=== PATIENT | female | born 1945 | race Caucasian/White ===

== ENCOUNTER 2018-05-05 14:42 | Observation (INO) ==
[2018-05-05] MEDS ORDERED: MethylPREDNISolone Sod Succinate Inj 125 MG/2 ML Vial IV.PUSH ONE (15:56)
--- NOTE | 2018-05-05 16:01 | ED ---
HPI General Chief Complaint: Respiratory Symptoms Stated Complaint: flu symptoms Time Seen by Provider: 05/05/18 15:35 Source: patient Mode of arrival: ambulatory Limitations: no limitations History of Present Illness HPI Narrative: 72-year-old female with PMH of COPD, JOVAN, HTN, CKD presents the ED for evaluation of 2 week history of intermittent sweats and chills, cough productive of green mucus, dyspnea. The patient states that she saw her primary care provider and was prescribed Clarithromycin 8 days ago. She endorses compliance with antibiotics and states that her symptoms have not improved. She states that she takes 10 mg of prednisone daily and has been using Atrovent inhalers every 4 hours, last dose this morning. She states that she is allergic to albuterol, had an RI after administration many years ago. She states that she uses BiPAP at night. Related Data Home Medications Medication Instructions Recorded Confirmed allopurinol 100 mg PO DAILY 05/05/18 05/05/18 aspirin 81 mg PO DAILY 05/05/18 05/05/18 atenolol 100 mg PO DAILY 05/05/18 05/05/18 calcitriol 0.25 mcg PO DAILY 05/05/18 05/05/18 clarithromycin 500 mg PO BID 05/05/18 05/05/18 furosemide 40 mg PO DAILY 05/05/18 05/05/18 hydralazine 100 mg PO TID 05/05/18 05/05/18 ipratropium bromide 0.025 mg/kg INHALATION Q8H 05/05/18 05/05/18 levothyroxine 75 mcg PO DAILY 05/05/18 05/05/18 pantoprazole 40 mg PO DAILY 05/05/18 05/05/18 prednisone 10 mg PO DAILY 05/05/18 05/05/18 Allergies Allergy/AdvReac Type Severity Reaction Status Date / Time albuterol Allergy Cardiac Verified 05/05/18 17:14 Arrest Review of Systems ROS: all other systems reviewed are negative [facility] Medical History Medical History CHF (congestive heart failure) (Acute) COPD (chronic obstructive pulmonary disease) (Acute) History of gout (Acute) Hx of thyroid disease (Acute) Hypertension (Acute) Stage 3 chronic kidney disease (Acute) Social History Social History (Reviewed 05/05/18 @ 18:08 by MICHELLE Lawrence Substance History: No History of Abuse Second Hand Smoke Exposure: No Smoking Status: Former smoker How Often Do You Have a Drink Containing Alcohol: Never Recent Travel in [facility] within the Last 8 Weeks: No Recent Out of Country Travel within the Last 8 Weeks: No Exam Narrative Exam Narrative: GENERAL: Well-nourished, well-developed, tachypneic, ill- appearing white female in no acute distress. SKIN: Focused skin assessment warm/dry. HEAD: Atraumatic. Normocephalic. EYES: Pupils equal and round. No scleral icterus. No injection or drainage. ENT: No nasal bleeding or discharge. Mucous membranes pink and moist. NECK: Trachea midline. No JVD. CARDIOVASCULAR: Regular rate and rhythm. No murmur appreciated. RESPIRATORY: + accessory muscle use. Clear to auscultation. Breath sounds equal bilaterally. GASTROINTESTINAL: Abdomen soft, non-tender, nondistended. Hepatic and splenic margins not palpable. MUSCULOSKELETAL: No obvious deformities. No clubbing. No cyanosis. No edema. NEUROLOGICAL: Awake and alert. No obvious cranial nerve deficits. Motor grossly within normal limits. Normal speech. PSYCHIATRIC: Appropriate mood and affect; insight and judgment normal. Course Initial Documented Vital Signs Temperature 97.7 F 05/05/18 14:57 Pulse Rate 60 05/05/18 14:57 Respiratory Rate 32 H 05/05/18 14:57 Blood Pressure 171/74 H 05/05/18 14:57 Pulse Oximetry 96 05/05/18 14:57 Last Documented Vital Signs Temperature 97.6 F 05/05/18 20:00 Pulse Rate 83 05/05/18 20:00 Respiratory Rate 20 05/05/18 20:00 Blood Pressure 117/74 05/05/18 20:00 Pulse Oximetry 100 05/05/18 20:00 Medical Decision Making SARAH Attestation SARAH supervised visit: Yes Attestation: I, Dr. Trujillo, have reviewed the advance practice practitioner's documentation and am in agreement, met with the patient face to face, made the diagnosis, and the medical decision making was done by me. *My assessment and Findings: This patient is being treated for pneumonia but not doing well. She is failing outpatient treatment. Workup here was conducted again will be readmitted. She is tachypneic and dyspneic. Will be admitted for IV antibiotics and further therapy. 72-year-old female with PMH of COPD, CHF presents the ED for evaluation of 2 week history of cough productive of yellow phlegm, fevers and shortness of breath. Patient is tachypneic and dyspneic on presentation. Physical exam reveals an obese white female in no acute distress. Lung sounds are clear. Trace edema in the lower extremities. Patient is allergic to albuterol. She was administered IV steroids. Workup reveals mild leukocytosis and interstitial changes in the lungs. There is a nodule noted as well. Patient was administered IV azithromycin and doxycycline. Plan to admit for further evaluation. Patient is agreeable. I spoke with Dr. Roldan who agrees to accept the patient to the medicine service. Please see medicine notes for disposition. MDM Narrative Medical Screen Exam Complete: Yes Emergency Medical Condition: Yes Differential Diagnosis Differential Diagnosis: COPD exacerbation versus CHF exacerbation versus pneumonia versus failed outpatient treatment versus sepsis versus metabolic derangement versus acute on chronic kidney injury versus other Lab Data Result diagrams: 05/05/18 17:00 05/05/18 17:00 Lab Results 05/05/18 05/05/18 05/05/18 Range/Units 17:00 17:00 17:00 WBC 12.0 H (4.0-11.0) th/mm3 RBC 3.79 L (4.00-5.30) mil/mm3 Hgb 11.5 L (11.6-15.3) gm/dL Hct 34.4 L (35.0-46.0) % MCV 90.7 (80.0-100.0) fL MCH 30.4 (27.0-34.0) pg MCHC 33.6 (32.0-36.0) % RDW 14.0 (11.6-17.2) % Plt Count 211 (150-450) th/mm3 MPV 8.6 (7.0-11.0) fL Neut % (Auto) 85.5 H (16.0-70.0) % Lymph % (Auto) 9.0 (9.0-44.0) % [place]lette % (Auto) 3.4 (0.0-8.0) % Eos % (Auto) 2.0 (0.0-4.0) % Baso % (Auto) 0.1 (0.0-2.0) % Neut # (Auto) 10.2 H (1.8-7.7) th/mm3 Lymph # (Auto) 1.1 (1.0-4.8) th/mm3 Sublette # (Auto) 0.4 (0.0-0.9) th/mm3 Eos # (Auto) 0.2 (0.0-0.4) th/mm3 Baso # (Auto) 0.0 (0.0-0.2) th/mm3 WBC Differential . Differential Comment Auto diff final Sodium 146 H (136-145) meq/L Potassium 3.8 (3.5-5.1) meq/L Chloride 108 H (98-107) meq/L Carbon Dioxide 28.3 (21.0-32.0) meq/L Anion Gap 10 (5-15) meq/L BUN 29 H (7-18) mg/dL Creatinine 2.07 H (0.50-1.00) mg/dL Estimated GFR 24 L (>89) mL/min Random Glucose 173 H (74-106) mg/dL Lactic Acid 1.0 (0.4-2.0) mmol/L Calcium 8.9 (8.5-10.1) mg/dL Total Bilirubin 0.3 (0.2-1.0) mg/dL AST 16 (15-37) U/L ALT 24 (10-53) U/L Alkaline Phosphatase 73 (45-117) U/L B-Natriuretic Peptide (0-100) pg/mL Total Protein 6.8 (6.4-8.2) g/dL Albumin 3.4 (3.4-5.0) g/dL 05/05/18 Range/Units 17:00 WBC (4.0-11.0) th/mm3 RBC (4.00-5.30) mil/mm3 Hgb (11.6-15.3) gm/dL Hct (35.0-46.0) % MCV (80.0-100.0) fL MCH (27.0-34.0) pg MCHC (32.0-36.0) % RDW (11.6-17.2) % Plt Count (150-450) th/mm3 MPV (7.0-11.0) fL Neut % (Auto) (16.0-70.0) % Lymph % (Auto) (9.0-44.0) % [place] % (Auto) (0.0-8.0) % Eos % (Auto) (0.0-4.0) % Baso % (Auto) (0.0-2.0) % Neut # (Auto) (1.8-7.7) th/mm3 Lymph # (Auto) (1.0-4.8) th/mm3 [place]lette # (Auto) (0.0-0.9) th/mm3 Eos # (Auto) (0.0-0.4) th/mm3 Baso # (Auto) (0.0-0.2) th/mm3 WBC Differential Differential Comment Sodium (136-145) meq/L Potassium (3.5-5.1) meq/L Chloride (98-107) meq/L Carbon Dioxide (21.0-32.0) meq/L Anion Gap (5-15) meq/L BUN (7-18) mg/dL Creatinine (0.50-1.00) mg/dL Estimated GFR (>89) mL/min Random Glucose (74-106) mg/dL Lactic Acid (0.4-2.0) mmol/L Calcium (8.5-10.1) mg/dL Total Bilirubin (0.2-1.0) mg/dL AST (15-37) U/L ALT (10-53) U/L Alkaline Phosphatase (45-117) U/L B-Natriuretic Peptide 195 H (0-100) pg/mL Total Protein (6.4-8.2) g/dL Albumin (3.4-5.0) g/dL Imaging Data Radiologist's impression: Chest CT 05/05/18 00:00 CONCLUSION: 1. Bilateral irregularly shaped groundglass nodular densities including left upper lung nodular density likely correlating with the chest x-ray finding. The patient had a prior chest CT in 2013 but the images are not available this time for direct comparison. Comparison to these images would be recommended if possible. Groundglass nodular densities are mentioned on the report of prior study. Precise comparison cannot be made without direct review of the images. 2. 1.3 cm pleural-based nodular in the left lower lung laterally. 3. The findings are nonspecific and both inflammatory and neoplastic etiologies are in the differential diagnosis. Chest X-Ray 05/05/18 15:56 CONCLUSION: 1. Cardiomegaly. 2. 1 cm nodule within the left upper lobe. Consider outpatient CT scan of thorax to further assess. 3. Chronic interstitial changes. Discharge Plan Discharge Disposition Patient Disposition: 30 Still Patient Discharge Condition Condition: Stable Physicians Team ED Provider: Kt Trujillo ED Midlevel Provider: Ivelisse Hercules Primary Care Provider: UNKNOWN, Attending Provider: Dinora Shell Other Providers: Brett West Discharge Interventions Interventions: ED Discharge Assessment Last Done: 05/05/18 20:42 Vital Signs Last Done: 05/05/18 14:57 Status ED Status: Left Department Discharge Information Discharge Date/Time: 05/05/18 20:57
--- NOTE | 2018-05-05 16:23 | XR ---
EXAM DATE: 05/05/2018 4:16 PM EDT AGE/SEX: 72 years / Female INDICATIONS: . Fever, and cough. CLINICAL DATA: This is the patient's initial encounter. Patient reports that signs and symptoms have been present for 2 days and indicates a pain score of 3/10. MEDICAL/SURGICAL HISTORY: Chronic obstructive pulmonary disease. None. COMPARISON: No prior exams available for comparison. FINDINGS: PA and lateral views of the chest demonstrate mild cardiomegaly without pulmonary vascular engorgemen t. A vague 1 cm nodular density projects over the left upper lobe. Chronic interstitial changes noted throughout the lungs. No infiltrates or effusions. Bony structures are unremarkable. CONCLUSION: 1. Cardiomegaly. 2. 1 cm nodule within the left upper lobe. Consider outpatient CT scan of thorax to further assess. 3. Chronic interstitial changes. Electronically signed by: Jonathan Gandhi MD 05/05/2018 4:22 PM EDT
[2018-05-05 17:30] LABS: Baso % (Auto) 0.1 % (0.0-2.0); Eos # (Auto) 0.2 th/mm3 (0.0-0.4); Hematocrit 34.4 % (35.0-46.0); Hemoglobin 11.5 gm/dL (11.6-15.3); Lymph # (Auto) 1.1 th/mm3 (1.0-4.8); Mean Corpuscular HGB Conc 33.6 % (32.0-36.0); Mean Corpuscular Hemoglobin 30.4 pg (27.0-34.0); Mean Corpuscular Volume 90.7 fL (80.0-100.0); Mean Platelet Volume 8.6 fL (7.0-11.0); Mono # (Auto) 0.4 th/mm3 (0.0-0.9); Mono % (Auto) 3.4 % (0.0-8.0); Neut # (Auto) 10.2 th/mm3 (1.8-7.7); Neut % (Auto) 85.5 % (16.0-70.0); Platelet Count 211 th/mm3 (150-450); Red Blood Count 3.79 mil/mm3 (4.00-5.30)
[2018-05-05 17:48] LABS: Alanine Aminotransferase 24 U/L (10-53); Albumin 3.4 g/dL (3.4-5.0); Anion Gap 10 meq/L (5-15); Aspartate Aminotransferase 16 U/L (15-37); Blood Urea Nitrogen 29 mg/dL (7-18); Calcium 8.9 mg/dL (8.5-10.1); Carbon Dioxide 28.3 meq/L (21.0-32.0); Chloride 108 meq/L (98-107); Glomerular Filtration Rate 24 mL/min (>89); Glucose,Random 173 mg/dL (74-106); Potassium 3.8 meq/L (3.5-5.1); Sodium 146 meq/L (136-145)
[2018-05-05 17:50] LABS: Alkaline Phosphatase 73 U/L (45-117); Total Protein 6.8 g/dL (6.4-8.2)
[2018-05-05] MEDS ORDERED: Sod Chloride 0.9% Inj 1,000 ML IV.SIG ONE (18:02)
[2018-05-05] MEDS ORDERED: Bisacodyl 10 MG Supp RECTAL PRN (18:55)
[2018-05-05] MEDS ORDERED: Acetaminophen 325 MG Tablet PO PRN (18:55)
--- NOTE | 2018-05-05 18:56 | P.HPIM ---
History of Present Illness Primary Care Physician: UNKNOWN History of Present Illness: This is a 72-year-old female with a PMH of HTN, COPD, Chronic Steroid Therapy and CKD Stage III-IV who presented to the ER w/ c/o SOB x10 days. Seen by PCP 10 days ago and started on Clarithromycin 500mg BID w/ minimal improvement, no outpatient CXR done. Notes she has been on Prednisone 10mg qd for approx 7yrs, "whenever they take me off I get a pneumonia". Follows w/ [facility] in [place]. Notes productive cough w/ green-colored sputum and persistent SOB/ wheezing. Reports significant ALLERGY to Albuterol, states "my heart beat out of my chest and I was in the ICU for 3 days", uses Ipratropium at home w/ no adverse effects. Denies fever, chills or chest pain. On arrival, BP 171/74, HR 60, O2 sat 96% on RA, Afebrile. WBC 12. Creatinine 2.07, no previous labs for comparison however patient reports this is likely baseline. CXR with one similar nodule left upper lobe recommendation for CT scan, chronic interstitial changes. S/p Ipratropium and Solu-Medrol in ER w/ some improvement, however persistent SOB/wheezing. - Diagnosis (1) COPD (chronic obstructive pulmonary disease) (2) PNA (pneumonia) (3) Lung nodule (4) CKD (chronic kidney disease) stage 4, GFR 15-29 ml/min (5) HTN (hypertension) Review of Systems PAST FAMILY HISTORY: Reviewed. No h/o DM or CAD All other systems reviewed negative except as stated in HPI [facility] - History History Provided By: Patient, Family Member - Medical History Medical History: Medical History (Last Reviewed 05/05/18 @ 18:08 by JOHN Lawrence) CHF (congestive heart failure) COPD (chronic obstructive pulmonary disease) History of gout Hx of thyroid disease Hypertension Stage 3 chronic kidney disease - Tobacco History Smoking Status: Former smoker - Alcohol History How Often Do You Have a Drink Containing Alcohol: Never - Substance Use History Substance History: No History of Abuse - Travel History Recent Travel in the [place] Within the Last 8 Weeks: No Recent Travel Out of the Country Within the Last 8 Weeks: No - Immunization History Tetanus Immunization: <5 Years Hx Influenza Vaccine This Season: No Medications and Allergies Active Medications: Active Medications Doxycycline Hyclate 100 mg/ (Sodium Chloride) 100 mls @ 100 mls/hr IV.SIG ONCE ONE Stop: 05/05/18 19:03 Allergies Allergy/AdvReac Type Severity Reaction Status Date / Time albuterol Allergy Cardiac Verified 05/05/18 17:14 Arrest Home Medications Medication Instructions Recorded Confirmed Type allopurinol 100 mg PO DAILY 05/05/18 05/05/18 History aspirin 81 mg PO DAILY 05/05/18 05/05/18 History atenolol 100 mg PO DAILY 05/05/18 05/05/18 History calcitriol 0.25 mcg PO DAILY 05/05/18 05/05/18 History clarithromycin 500 mg PO BID 05/05/18 05/05/18 History furosemide 40 mg PO DAILY 05/05/18 05/05/18 History hydralazine 100 mg PO TID 05/05/18 05/05/18 History ipratropium bromide 0.025 mg/kg INHALATION Q8H 05/05/18 05/05/18 History levothyroxine 75 mcg PO DAILY 05/05/18 05/05/18 History pantoprazole 40 mg PO DAILY 05/05/18 05/05/18 History prednisone 10 mg PO DAILY 05/05/18 05/05/18 History Exam Vital signs: Vital Signs 05/05/18 14:57 05/05/18 16:35 05/05/18 18:53 Temperature 97.7 F Pulse Rate 60 66 Respiratory Rate 32 H 20 Blood Pressure 171/74 H Pulse Oximetry 96 100 05/05/18 18:54 Temperature Pulse Rate Respiratory Rate Blood Pressure Pulse Oximetry 99 Intake & Output 05/04/18 05/05/18 05/05/18 18:59 06:59 18:59 Weight 103 kg Narrative: PE: GENERAL: Very pleasant elderly white female in no acute distress. Daughter at bedside. SKIN: Focused skin assessment warm and dry. HEENT: PERRLA, EOMI. No scleral icterus or conjunctival pallor. No lid lag or facial droop. CARDIOVASCULAR: Regular rate and rhythm. No obvious murmurs to auscultation. No chest tenderness to palpation. RESPIRATORY: Coarse breath sounds bilaterally, occasional wheezing. No crackles. GASTROINTESTINAL: Abdomen soft, non-tender, nondistended. BS normal. MUSCULOSKELETAL: Extremities without clubbing, cyanosis, or edema. No obvious deformities. NEUROLOGICAL: Awake, alert and oriented x4. No focal neurologic deficits. Moving both upper and lower extremities spontaneously. PSYCHIATRIC: Appropriate mood and affect. Insight and judgment normal. Results - Labs CBC & Chem 7: 05/05/18 17:00 05/05/18 17:00 Labs: Short CBC 05/05/18 Range/Units 17:00 WBC 12.0 H (4.0-11.0) th/mm3 Hgb 11.5 L (11.6-15.3) gm/dL Hct 34.4 L (35.0-46.0) % Plt Count 211 (150-450) th/mm3 BMP 05/05/18 17:00 Sodium 146 H Potassium 3.8 Chloride 108 H Carbon Dioxide 28.3 BUN 29 H Creatinine 2.07 H Calcium 8.9 Liver Function 05/05/18 Range/Units 17:00 Total Bilirubin 0.3 (0.2-1.0) mg/dL AST 16 (15-37) U/L ALT 24 (10-53) U/L Alkaline Phosphatase 73 (45-117) U/L Albumin 3.4 (3.4-5.0) g/dL - Imaging Impressions Chest X-Ray 05/05/18 15:56 CONCLUSION: 1. Cardiomegaly. 2. 1 cm nodule within the left upper lobe. Consider outpatient CT scan of thorax to further assess. 3. Chronic interstitial changes. Caprini VTE Risk Assessment Caprini VTE Risk Assessment: No/Low Risk (score <= 1) Caprini Risk Assessment Model: Point Value = 1 Point Value = 2 Point Value = 3 Point Value = 5 Age 41-60 Minor surgery BMI > 25 kg/m2 Swollen legs Varicose veins or History of unexplained or recurrent spontaneous Oral contraceptives or hormone replacement Sepsis (< 1 month) Serious lung disease, including pneumonia (< 1 month) Abnormal pulmonary function Acute myocardial infarction Congestive heart failure (< 1 month) History of inflammatory bowel disease Medical patient at bed rest Age 61-74 Arthroscopic surgery Major open surgery (> 45 min) Laparoscopic surgery (> 45 min) Malignancy Confined to bed (> 72 hours) Immobilizing plaster cast Central venous access Age >= 75 History of VTE Family history of VTE Factor V Leiden Prothrombin [id number] Lupus anticoagulant Anticardiolipin antibodies Elevated serum homocysteine Heparin-induced thrombocytopenia Other congenital or acquired thrombophilia Stroke (< 1 month) Elective arthroplasty Hip, pelvis, or leg fracture Acute spinal cord injury (< 1 month) Prophylaxis Regimen: Total Risk Factor Score Risk Level Prophylaxis Regimen 0-1 Low Early ambulation 2 Moderate Order ONE of the following: *Sequential Compression Device (SCD) *Heparin 5000 units SQ BID 3-4 Higher Order ONE of the following medications: *Heparin 5000 units SQ TID *Enoxaparin/Lovenox 40 mg SQ daily (WT < 150 kg, CrCl > 30 mL/min) *Enoxaparin/Lovenox 30 mg SQ daily (WT < 150 kg, CrCl > 10-29 mL/min) *Enoxaparin/Lovenox 30 mg SQ BID (WT < 150 kg, CrCl > 30 mL/min) AND/OR *Sequential Compression Device (SCD) 5 or more Highest Order ONE of the following medications: *Heparin 5000 units SQ TID (Preferred with Epidurals) *Enoxaparin/Lovenox 40 mg SQ daily (WT < 150 kg, CrCl > 30 mL/min) *Enoxaparin/Lovenox 30 mg SQ daily (WT < 150 kg, CrCl > 10-29 mL/min) *Enoxaparin/Lovenox 30 mg SQ BID (WT < 150 kg, CrCl > 30 mL/min) AND *Sequential Compression Device (SCD) Assessment and Plan - Assessment (1) COPD (chronic obstructive pulmonary disease) Code(s): J44.9 - Chronic obstructive pulmonary disease, unspecified Status: Acute (2) PNA (pneumonia) Code(s): J18.9 - Pneumonia, unspecified organism Status: Acute (3) Lung nodule Code(s): R91.1 - Solitary pulmonary nodule Status: Acute (4) CKD (chronic kidney disease) stage 4, GFR 15-29 ml/min Code(s): N18.4 - Chronic kidney disease, stage 4 (severe) Status: Acute (5) HTN (hypertension) Code(s): I10 - Essential (primary) hypertension Status: Acute - Plan A/P: 1. COPD: Chronic Respiratory Failure w/ Acute Exacerbation. Moderate. On chronic steroid therapy w/ Prednisone 10mg qd for the last 7yrs. Solu-Medrol 40mg q6, Ipratropium Neb (ALLERGY to Albuterol). Monitor O2. Follows w/ [facility] in [place], outpatient follow up after d/c. 2. PNA: productive cough w/ green-colored sputum, on Clarithromycin x10 days by PCP, persistent productive cough, CXR w/ lung nodule, chronic interstitial changes, no obvious infiltrate. Will start Levaquin IV, Mucinex, Check Sputum Cultures. 3. Lung Nodule: CXR w/ 1cm JOSE nodule, pt denies previous history of nodule, will check CT Chest for further evaluation, unable to give contrast due to renal function. 4. CKD: Stage III-IV, follows w/ [facility] in [place], creatinine 2.07, no previous labs for comparison, pt reports likely baseline. Will check U/a, repeat labs in am, monitor I/O, s/p IVF in ER. 5. DVT Prophylaxis: SCD/Teds 6. Social work for d/c planning as needed 7. Case discussed w/ ER physician at length, labs/records/imaging reviewed by me
[2018-05-05] MEDS ORDERED: Sod Chloride 0.9% Inj 1,000 ML IV.CONT SCH (19:00)
--- NOTE | 2018-05-05 19:49 | CT ---
EXAM DATE: 05/05/2018 7:35 PM EDT AGE/SEX: 72 years / Female INDICATIONS: Shortness of breath, cough, and fever, diagnosed with pneumonia ten days ago. CLINICAL DATA: This is the patient's initial encounter. Patient reports that signs and symptoms have been present for 2 weeks and indicates a pain score of 3/10. MEDICAL/SURGICAL HISTORY: Hypertension. Congestive heart failure. Chronic obstructive pulmonary d isease. Thyroid disease, kidney disease. None. RADIATION DOSE: 19.26 CTDI (mGy) COMPARISON: No prior exams available for comparison. TECHNIQUE: Multiple contiguous axial images were obtained through the chest without contrast. Image s were obtained in suspended respiration using multiple row detector helical technique. Using automa josiah exposure control and adjustment of the mA and/or kV according to patient size, radiation dose was kept as low as reasonably achievable to obtain optimal diagnostic quality images. DICOM format imag e data is available electronically for review and comparison. FINDINGS: Lungs: Multiple groundglass nodular densities are identified bilaterally including 1.4 cm density in the right upper lobe on image #27 and 1.3 cm nodular density in the left upper lobe on image #26 1.2 cm groundglass nodular density in the lateral right mid lung on image #30. 1.2 cm ground glass nodul ar density in the right lower lung on image #42. Pleural-based pulmonary nodular density in the left lower lung laterally measures 1.3 cm on image #43. Mediastinum: Coronary artery calcification. No enlarged lymph nodes. Pleurae: No evidence of focal thickening or pleural effusion. Axillae: Unremarkable. Bony Structures: Unremarkable. Miscellaneous: Cholecystectomy clips. Upper abdomen within normal limits. Small hiatal hernia. CONCLUSION: 1. Bilateral irregularly shaped groundglass nodular densities including left upper lung nodular dens ity likely correlating with the chest x-ray finding. The patient had a prior chest CT in 2013 but the images are not available this time for direct comparison. Comparison to these images would be recomm ended if possible. Groundglass nodular densities are mentioned on the report of prior study. Precise comparison cannot be made without direct review of the images. 2. 1.3 cm pleural-based nodular in the left lower lung laterally. 3. The findings are nonspecific and both inflammatory and neoplastic etiologies are in the different ial diagnosis. Electronically signed by: Sujit Gallo MD 05/05/2018 7:47 PM EDT
[2018-05-05] MEDS: guaiFENesin 600 MG ER Tablet PO SCH (21:40)
[2018-05-05] MEDS: Senna/Docusate Sodium 8.6/50 MG Tablet PO SCH (21:40)
[2018-05-05] MEDS: MethylPREDNISolone Sod Succinate Inj 40 MG/ML Vial IV.PUSH SCH (22:00)
[2018-05-05 23:41] LABS: Bilirubin,Urine Negative (Negative); Clarity,Urine Clear (Clear); Color,Urine Yellow (Yellw/Straw); Glucose,Urine (UA) 150 mg/dL (Negative); Hyaline Casts,Urine 3 /lpf (0-3); Leukocyte Esterase,Urine Negative (Negative); Mucus,Urine Few /lpf (Occasional); Nitrite,Urine Negative (Negative); Specific Gravity,Urine 1.011 (1.002-1.035); Squamous Epithelial Cell,Urine <1 /hpf (0-5)
[2018-05-06] MEDS: MethylPREDNISolone Sod Succinate Inj 40 MG/ML Vial IV.PUSH SCH ×4 (04:05→21:00)
[2018-05-06] MEDS: Levothyroxine 75 MCG Tablet PO SCH (06:10)
[2018-05-06 09:28] LABS: Baso % (Auto) 0.3 % (0.0-2.0); Hemoglobin 11.2 gm/dL (11.6-15.3); Lymph # (Auto) 0.7 th/mm3 (1.0-4.8); Lymph % (Auto) 7.3 % (9.0-44.0); Mean Corpuscular HGB Conc 34.9 % (32.0-36.0); Mean Corpuscular Hemoglobin 31.4 pg (27.0-34.0); Mean Corpuscular Volume 90.1 fL (80.0-100.0); Mean Platelet Volume 8.7 fL (7.0-11.0); Mono % (Auto) 0.5 % (0.0-8.0); Neut # (Auto) 8.6 th/mm3 (1.8-7.7); Neut % (Auto) 91.9 % (16.0-70.0); Platelet Count 194 th/mm3 (150-450); Red Blood Count 3.56 mil/mm3 (4.00-5.30); Red Cell Distribution Width 13.8 % (11.6-17.2); White Blood Count 9.3 th/mm3 (4.0-11.0)
[2018-05-06 09:54] LABS: Anion Gap 12 meq/L (5-15); Aspartate Aminotransferase 16 U/L (15-37); Blood Urea Nitrogen 26 mg/dL (7-18); Calcium 8.7 mg/dL (8.5-10.1); Carbon Dioxide 22.2 meq/L (21.0-32.0); Chloride 107 meq/L (98-107); Glomerular Filtration Rate 26 mL/min (>89); Glucose,Random 246 mg/dL (74-106); Potassium 3.8 meq/L (3.5-5.1); Sodium 141 meq/L (136-145)
[2018-05-06 09:56] LABS: Alanine Aminotransferase 20 U/L (10-53)
[2018-05-06 09:58] LABS: Alkaline Phosphatase 64 U/L (45-117); Total Protein 6.2 g/dL (6.4-8.2)
[2018-05-06] MEDS: Senna/Docusate Sodium 8.6/50 MG Tablet PO SCH ×2 (10:38→21:00)
[2018-05-06] MEDS: guaiFENesin 600 MG ER Tablet PO SCH ×2 (10:39→20:59)
[2018-05-06] MEDS: Atenolol 100 MG Tablet PO SCH (10:40)
--- NOTE | 2018-05-06 12:31 | P.PN ---
Subjective Interval history: Follow-up COPD exacerbation May 06, 2018-patient seen and examined, reports some improvement of shortness of breath. Denies any chest pain. Physical Exam Vital signs: Vital Signs 05/05/18 14:57 05/05/18 16:35 05/05/18 18:15 Temperature 97.7 F Pulse Rate 60 Respiratory Rate 32 H 26 H Blood Pressure 171/74 H 185/77 H Pulse Oximetry 96 100 05/05/18 18:53 05/05/18 18:54 05/05/18 20:00 Temperature 97.6 F Pulse Rate 66 83 Respiratory Rate 20 20 Blood Pressure 117/74 Pulse Oximetry 99 100 05/05/18 21:44 05/05/18 23:49 05/06/18 04:00 Temperature 97.8 F 97.8 F Pulse Rate 74 76 76 Respiratory Rate 18 21 21 Blood Pressure 125/60 220/96 H Pulse Oximetry 93 L 05/06/18 07:08 05/06/18 07:28 05/06/18 11:26 Temperature 98.8 F 98.6 F Pulse Rate 69 78 86 Respiratory Rate 18 18 18 Blood Pressure 185/79 H 148/67 H Pulse Oximetry 95 96 Intake & Output 05/05/18 05/06/18 05/06/18 18:59 06:59 18:59 Intake Total 1260 / 1260 Balance 1260 / 1260 Weight 103 kg 102.965 kg Intake: IV 1200 / 1200 Doxy 100 Inj 100 MG In NS Inj 100 / 100 100 ML @ 100 mls/hr IV.SIG ONCE ONE Rx#:[id number] NS Inj 1,000 ML @ Wide Open IV. 1000 / 1000 SIG BOLUS ONE Rx#:[id number] Rocephin Inj 1,000 MG In NS Inj 100 / 100 100 ML @ 200 mls/hr IV.SIG ONCE ONE Rx#:[id number] Oral 60 / 60 Other: # Voids 2 Weight On Admission 102.965 kg Narrative: GENERAL: NAD SKIN: Warm and dry. HEAD: Normocephalic. EYES: No scleral icterus. No injection or drainage. NECK: Supple, trachea midline. No JVD or lymphadenopathy. CARDIOVASCULAR: Regular rate and rhythm without murmurs, gallops, or rubs. RESPIRATORY: Breath sounds decreased bilaterally. No accessory muscle use. GASTROINTESTINAL: Abdomen soft, non-tender, nondistended. MUSCULOSKELETAL: No cyanosis, or edema. BACK: Nontender without obvious deformity. No CVA tenderness. Results - Labs CBC & Chem 7: 05/06/18 09:00 05/06/18 09:00 Laboratory Results - last 24 hr 05/05/18 05/05/18 05/05/18 17:00 17:00 17:00 WBC 12.0 H RBC 3.79 L Hgb 11.5 L Hct 34.4 L MCV 90.7 MCH 30.4 MCHC 33.6 RDW 14.0 Plt Count 211 MPV 8.6 Neut % (Auto) 85.5 H Lymph % (Auto) 9.0 [place] % (Auto) 3.4 Eos % (Auto) 2.0 Baso % (Auto) 0.1 Neut # (Auto) 10.2 H Lymph # (Auto) 1.1 [place] # (Auto) 0.4 Eos # (Auto) 0.2 Baso # (Auto) 0.0 WBC Differential . Differential Comment Auto diff final Sodium 146 H Potassium 3.8 Chloride 108 H Carbon Dioxide 28.3 Anion Gap 10 BUN 29 H Creatinine 2.07 H Estimated GFR 24 L Random Glucose 173 H Lactic Acid 1.0 Calcium 8.9 Total Bilirubin 0.3 AST 16 ALT 24 Alkaline Phosphatase 73 B-Natriuretic Peptide Total Protein 6.8 Albumin 3.4 Urine Color Urine Clarity Urine pH Ur Specific [place] Urine Protein Urine Glucose (UA) Urine Ketones Urine Occult Blood Urine Nitrate Urine Bilirubin Urine Urobilinogen Ur Leukocyte Esterase Urine RBC Urine WBC Ur Squamous Epith Cells Hyaline Casts Urine Mucus Micro UA Comment Ur Microscopic Review Urine Culture Comments 05/05/18 05/05/18 05/06/18 17:00 23:05 09:00 WBC 9.3 RBC 3.56 L Hgb 11.2 L Hct 32.0 L MCV 90.1 MCH 31.4 MCHC 34.9 RDW 13.8 Plt Count 194 MPV 8.7 Neut % (Auto) 91.9 H Lymph % (Auto) 7.3 L [place] % (Auto) 0.5 Eos % (Auto) 0.0 Baso % (Auto) 0.3 Neut # (Auto) 8.6 H Lymph # (Auto) 0.7 L [place] # (Auto) 0.0 Eos # (Auto) 0.0 Baso # (Auto) 0.0 WBC Differential . Differential Comment Auto diff final Sodium Potassium Chloride Carbon Dioxide Anion Gap BUN Creatinine Estimated GFR Random Glucose Lactic Acid Calcium Total Bilirubin AST ALT Alkaline Phosphatase B-Natriuretic Peptide 195 H Total Protein Albumin Urine Color Yellow Urine Clarity Clear Urine pH 5.0 Ur Specific [place] 1.011 Urine Protein 100 H Urine Glucose (UA) 150 H Urine Ketones Negative Urine Occult Blood Negative Urine Nitrate Negative Urine Bilirubin Negative Urine Urobilinogen Less than 2 Ur Leukocyte Esterase Negative Urine RBC 1 Urine WBC 1 Ur Squamous Epith Cells <1 Hyaline Casts 3 Urine Mucus Few H Micro UA Comment Culture not ind Ur Microscopic Review Not Reportable Urine Culture Comments Culture not ind 05/06/18 09:00 WBC RBC Hgb Hct MCV MCH MCHC RDW Plt Count MPV Neut % (Auto) Lymph % (Auto) [place] % (Auto) Eos % (Auto) Baso % (Auto) Neut # (Auto) Lymph # (Auto) [place] # (Auto) Eos # (Auto) Baso # (Auto) WBC Differential Differential Comment Sodium 141 Potassium 3.8 Chloride 107 Carbon Dioxide 22.2 Anion Gap 12 BUN 26 H Creatinine 1.92 H Estimated GFR 26 L Random Glucose 246 H Lactic Acid Calcium 8.7 Total Bilirubin 0.3 AST 16 ALT 20 Alkaline Phosphatase 64 B-Natriuretic Peptide Total Protein 6.2 L D Albumin 3.0 L Urine Color Urine Clarity Urine pH Ur Specific [place] Urine Protein Urine Glucose (UA) Urine Ketones Urine Occult Blood Urine Nitrate Urine Bilirubin Urine Urobilinogen Ur Leukocyte Esterase Urine RBC Urine WBC Ur Squamous Epith Cells Hyaline Casts Urine Mucus Micro UA Comment Ur Microscopic Review Urine Culture Comments Microbiology 05/05/18 17:00 Blood - Line Aerobic Blood Culture - Preliminary No growth in 1 day 05/05/18 17:00 Blood - Line Anaerobic Blood Culture - Preliminary No growth in 1 day 05/05/18 17:00 Blood - Line Aerobic Blood Culture - Preliminary No growth in 1 day 05/05/18 17:00 Blood - Line Anaerobic Blood Culture - Preliminary No growth in 1 day 05/05/18 17:40 Nasal Wash Influenza Types A,B Antigen - Final Negative for FLU A and B antigen Infection due to influenza A or B cannot be ruled out since the antigen present in the sample may be below the detection limit of the test. - Imaging Impressions Chest CT 05/05/18 00:00 CONCLUSION: 1. Bilateral irregularly shaped groundglass nodular densities including left upper lung nodular density likely correlating with the chest x-ray finding. The patient had a prior chest CT in 2013 but the images are not available this time for direct comparison. Comparison to these images would be recommended if possible. Groundglass nodular densities are mentioned on the report of prior study. Precise comparison cannot be made without direct review of the images. 2. 1.3 cm pleural-based nodular in the left lower lung laterally. 3. The findings are nonspecific and both inflammatory and neoplastic etiologies are in the differential diagnosis. Chest X-Ray 05/05/18 15:56 CONCLUSION: 1. Cardiomegaly. 2. 1 cm nodule within the left upper lobe. Consider outpatient CT scan of thorax to further assess. 3. Chronic interstitial changes. Assessment and Plan - Assessment (1) COPD (chronic obstructive pulmonary disease) Code(s): J44.9 - Chronic obstructive pulmonary disease, unspecified Status: Acute (2) PNA (pneumonia) Code(s): J18.9 - Pneumonia, unspecified organism Status: Acute (3) Lung nodule Code(s): R91.1 - Solitary pulmonary nodule Status: Acute (4) CKD (chronic kidney disease) stage 4, GFR 15-29 ml/min Code(s): N18.4 - Chronic kidney disease, stage 4 (severe) Status: Acute (5) HTN (hypertension) Code(s): I10 - Essential (primary) hypertension Status: Acute - Plan 72-year-old female with 1. COPD: Chronic Respiratory Failure w/ Acute Exacerbation. Moderate. Currently on Solu-Medrol 40mg q6, Ipratropium Neb (ALLERGY to Albuterol), Levaquin. Monitor O2. Follows w/ Machine Steak Tenderizer in [place], outpatient follow up after d/c. 2. Community acquired PNA: productive cough w/ green-colored sputum, on Clarithromycin x10 days by PCP, persistent productive cough Continue with Levaquin IV, Mucinex, Check Sputum Cultures. 3. Lung Nodule: CXR w/ 1cm JOSE nodule, pt denies previous history of nodule. CT chest noted and review 4. Acute on CKD: Stage III-IV, follows w/ Admin Prog Coord in [facility], creatinine 2.07, no previous labs for comparison, pt reports likely baseline Renal indices improving 5. Hypertension Continue with atenolol 6. DVT Prophylaxis: SCD/Teds
[2018-05-07] MEDS: MethylPREDNISolone Sod Succinate Inj 40 MG/ML Vial IV.PUSH SCH (04:17)
[2018-05-07 04:37] VITALS: O2SAT 97
[2018-05-07] MEDS: Levothyroxine 75 MCG Tablet PO SCH (06:16)
[2018-05-07 07:54] VITALS: PULSE 68; RESP 18; TEMP 98.8
[2018-05-07] MEDS: guaiFENesin 600 MG ER Tablet PO SCH (08:32)
[2018-05-07] MEDS: Atenolol 100 MG Tablet PO SCH (08:32)
[2018-05-07] MEDS: Senna/Docusate Sodium 8.6/50 MG Tablet PO SCH (08:32)
[2018-05-07] MEDS ORDERED: predniSONE 20 MG Tablet PO SCH (09:00)
[2018-05-07] MEDS ORDERED: Allopurinol 100 MG Tablet PO SCH (09:00)
[2018-05-07] MEDS ORDERED: Furosemide 40 MG Tablet PO SCH (09:00)
--- NOTE | 2018-05-07 09:52 | P.PN ---
Subjective Interval history: Follow-up COPD exacerbation May 06, 2018-patient seen and examined, reports some improvement of shortness of breath. Denies any chest pain. May 07, 2018-patient seen and examined, denies any chest pain and reports significant improvement of shortness of breath Physical Exam Vital signs: Vital Signs 05/06/18 11:26 05/06/18 12:33 05/06/18 15:58 Temperature 98.6 F Pulse Rate 86 61 68 Respiratory Rate 18 22 20 Blood Pressure 148/67 H Pulse Oximetry 96 05/06/18 16:00 05/06/18 18:49 05/06/18 19:46 Temperature 98.7 F 98.7 F Pulse Rate 90 66 67 Respiratory Rate 18 18 20 Blood Pressure 187/84 H 198/79 H Pulse Oximetry 96 95 05/06/18 20:00 05/07/18 00:00 05/07/18 04:00 Temperature 98.8 F 98.5 F 98.3 F Pulse Rate 67 73 81 Respiratory Rate 17 20 20 Blood Pressure 192/80 H 117/82 177/70 H Pulse Oximetry 95 96 97 05/07/18 07:29 05/07/18 07:53 05/07/18 09:31 Temperature 98.8 F Pulse Rate 84 68 Respiratory Rate 16 18 Blood Pressure 182/75 H 160/72 H Pulse Oximetry 97 Intake & Output 05/06/18 05/07/18 05/07/18 18:59 06:59 18:59 Intake Total 500 / 500 450 / 450 Balance 500 / 500 450 / 450 Weight 105.994 kg Intake: IV 150 / 150 Levaquin 750 mg Premix Inj 150 150 / 150 ML @ 100 mls/hr IV.SIG Q48H ADDY Rx#:[id number] Oral 500 / 500 300 / 300 Other: # Voids 3 # Bowel Movements 0 Narrative: GENERAL: NAD SKIN: Warm and dry. HEAD: Normocephalic. EYES: No scleral icterus. No injection or drainage. NECK: Supple, trachea midline. No JVD or lymphadenopathy. CARDIOVASCULAR: Regular rate and rhythm without murmurs, gallops, or rubs. RESPIRATORY: Breath sounds equal bilaterally. No accessory muscle use. GASTROINTESTINAL: Abdomen soft, non-tender, nondistended. MUSCULOSKELETAL: No cyanosis, or edema. BACK: Nontender without obvious deformity. No CVA tenderness. Results - Labs CBC & Chem 7: 05/06/18 09:00 05/06/18 09:00 Laboratory Results - last 24 hr 05/06/18 09:00 Sodium 141 Potassium 3.8 Chloride 107 Carbon Dioxide 22.2 Anion Gap 12 BUN 26 H Creatinine 1.92 H Estimated GFR 26 L Random Glucose 246 H Calcium 8.7 Total Bilirubin 0.3 AST 16 ALT 20 Alkaline Phosphatase 64 Total Protein 6.2 L D Albumin 3.0 L Microbiology 05/05/18 17:00 Blood - Line Aerobic Blood Culture - Preliminary No growth in 1 day 05/05/18 17:00 Blood - Line Anaerobic Blood Culture - Preliminary No growth in 1 day 05/05/18 17:00 Blood - Line Aerobic Blood Culture - Preliminary No growth in 1 day 05/05/18 17:00 Blood - Line Anaerobic Blood Culture - Preliminary No growth in 1 day - Procedures none Assessment and Plan - Assessment (1) COPD (chronic obstructive pulmonary disease) Code(s): J44.9 - Chronic obstructive pulmonary disease, unspecified Status: Acute (2) PNA (pneumonia) Code(s): J18.9 - Pneumonia, unspecified organism Status: Acute (3) Lung nodule Code(s): R91.1 - Solitary pulmonary nodule Status: Acute (4) CKD (chronic kidney disease) stage 4, GFR 15-29 ml/min Code(s): N18.4 - Chronic kidney disease, stage 4 (severe) Status: Acute (5) HTN (hypertension) Code(s): I10 - Essential (primary) hypertension Status: Acute - Plan 72-year-old female with 1. COPD: Chronic Respiratory Failure w/ Acute Exacerbation. Moderate. Currently on Solu-Medrol 40mg q6 and was switched to p.o. prednisone 20 mg daily, Ipratropium Neb (ALLERGY to Albuterol), Levaquin. Monitor O2. Follows w/ Mold Yard Supervisor in [place], outpatient follow up after d/c. 2. Community acquired PNA: productive cough w/ green-colored sputum, on Clarithromycin x10 days by PCP, persistent productive cough Continue with Levaquin IV, Mucinex. However will discharge with p.o. Levaquin 3. Lung Nodule: CXR w/ 1cm JOSE nodule, pt denies previous history of nodule. CT chest noted and review 4. Acute on CKD: Stage III-IV, follows w/ Mortgage Manager in [place], creatinine 2.07, no previous labs for comparison, pt reports likely baseline Renal indices improving 5. Hypertension Continue with atenolol 6. DVT Prophylaxis: SCD/Teds Discharge patient to home Condition on discharge: Improved Regular Diet as tolerated Ad Li activity Rx written: see EMR Follow-up with primary care physician
[2018-05-07 09:57] VITALS: BP 152/80
== END 2018-05-07 11:07 | disposition home or self-care (01) ==
LOC: NEDA 14:42 → NEPC 14:42 → NEPGCP 20:41
PROVIDERS: ADMIT Hospitalist; ATTEND Hospitalist